=== PATIENT | female | born 1940 | race Caucasian/White ===

== ENCOUNTER → 2016-04-16 | Outpatient (CLI) | payer MEDICARE ==
[2015-09-17 14:14] VITALS: BP 114/62
[~2016-04-16] MED LIST: APIX5TAB PO; ATOR20TA58 PO; DILT120C97 PO; FLEC50TA PO; POLY119P4 PO
--- NOTE | 2016-04-16 11:08 | CARD ---
APPROVED REPORT EXAM: Two-dimensional and M-mode echocardiogram with Doppler and color Doppler. Other Information Quality : Good Rhythm : NSR INDICATION SSS RISK FACTORS Hypertension 2D DIMENSIONS RVDd1.8 (2.9-3.5cm)Left Atrium(2D)2.2 (1.6-4.0cm) IVSd0.7 (0.7-1.1cm)Aortic Root(2D)2.5 (2.0-3.7cm) LVDd4.3 (3.9-5.9cm)LVOT Diameter2.1 (1.8-2.4cm) PWd0.8 (0.7-1.1cm)LVDs3.0 (2.5-4.0cm) FS (%) 29.6 %SV46.8 ml LVEF(%)57.0 (>50%) Aortic Valve AoV Peak Alexei.130.8cm/sAoV VTI31.1cm AO Peak GR.6.8mmHgLVOT Peak Alexei.90.2cm/s AO Mean GR.4mmHgAVA (VMAX)2.43cm2 Mitral Valve MV E Lrmqqmfp55.7cm/sMV E Peak Gr.3mmHg MV DECEL [id number] A Aejnzlik85.0cm/s MV E Mean Gr.1mmHgE/A Ratio0.7 MV A [id number] Pulmonary Valve PV Peak Grmwklzp69.6cm/s Tricuspid Valve TR P. Cyvfuxcp009rt/sTR Peak Gr.17mmHg Pulmonary Vein S1 Aeqyuncv96.5cm/sD2 Zebmrsaa54.6cm/s PVa [id number] LEFT VENTRICLE The left ventricle is normal size. There is normal left ventricular wall thickness. The left ventricu lar systolic function is normal. The Ejection Fraction is 60-65%. There is normal LV segmental wall m otion. Transmitral Doppler flow pattern is Grade I-abnormal relaxation pattern. RIGHT VENTRICLE The right ventricle is normal size. There is normal right ventricular wall thickness. The right ventr icular systolic function is normal. There is a pacemaker lead in the right ventricle. ATRIA The left atrium is mildly dilated. The right atrium size is normal. The interatrial septum is intact with no evidence for an atrial septal defect or patent foramen ovale as noted on 2-D or Doppler imagi ng. AORTIC VALVE The aortic valve is mildly sclerotic. Doppler and Color Flow revealed mild aortic regurgitation. Ther e is no significant aortic valvular stenosis. MITRAL VALVE The mitral valve leaflets are thickened. There is no evidence of mitral valve prolapse. There is no m itral valve stenosis. Doppler and Color Flow revealed mild mitral regurgitation. TRICUSPID VALVE Doppler and Color Flow revealed mild tricuspid regurgitation. The pulmonary artery systolic pressure is estimated at 22 mmHg. There is no pulmonary hypertension. PULMONIC VALVE The pulmonic artery is not well visualized. Doppler and Color Flow revealed mild pulmonic valvular re gurgitation. There is no pulmonic valvular stenosis. GREAT VESSELS The aortic root is normal in size. The ascending aorta is normal in size. The pulmonary artery is nor mal. The IVC is normal in size and collapses <50% with inspiration. PERICARDIAL EFFUSION There is no evidence of significant pericardial effusion. Critical Notification Critical Value: No <Conclusion> The left ventricular systolic function is normal. The Ejection Fraction is 60-65%. There is normal LV segmental wall motion. Transmitral Doppler flow pattern is Grade I-abnormal relaxation pattern. The left atrium is mildly dilated. Mild aortic regurgitation. Mild mitral regurgitation. Mild tricuspid regurgitation. The pulmonary artery systolic pressure is estimated at 22 mmHg. There is no pulmonary hypertension. There is no evidence of significant pericardial effusion.
== END | disposition home or self-care (01) ==
LOC: ECHO 08:44
PROVIDERS: ATTEND Internal Medicine Cardiovascular Disease
DX: I34.0 Nonrheumatic mitral (valve) insufficiency (principal); I37.1 Nonrheumatic pulmonary valve insufficiency; I35.1 Nonrheumatic aortic (valve) insufficiency; Z95.0 Presence of cardiac pacemaker
CPT/HCPCS: 93306

== ENCOUNTER → 2016-05-21 | Outpatient (CLI) | payer MEDICARE ==
[2015-09-17 14:14] VITALS: BP 114/62
--- NOTE | 2016-05-21 12:44 | KCIC ---
CT abdomen and pelvis without contrast Indication: Hematuria. Axial imaging through the abdomen and pelvis was performed without contrast. PQRS STATEMENT One or more of the following individualized dose reduction techniques were utilized for this study: 1.Automated exposure control. 2.Adjustment of the mA and/orkVaccording to patient size. 3.Use of iterative reconstruction technique. No prior studies are available for comparison. The patient does have a pectus excavatum deformity of the chest. The lung bases are clear apart from some scarring or atelectasis in the left lower lobe. The liver contains tiny low densities which are too small to characterize but likely represent cysts. The gallbladder is surgically absent. The pancreas and spleen are unremarkable. No adrenal mass is detected. There are numerous bilateral nonobstructing renal calculi, largest lower pole left kidney measuring 8 millimeters. No definite ureteral calculi or ureteral dilatation is detected. Aorta is non aneurysmal. The small and large bowel loops are normal caliber. There is no ascites. There is sigmoid diverticulosis without evidence of acute diverticulitis. The bladder is decompressed. No bladder calculi are detected. Impression: Bilateral nonobstructing nephrolithiasis. No other significant abnormality is detected. Electronically signed by: Conrad Sheth MD (May 21, 2016 12:42:33)
== END | disposition home or self-care (01) ==
LOC: KCIC CT 10:12
PROVIDERS: ATTEND Nurse Practitioner Occupational Health
DX: R31.9 Hematuria, unspecified (principal); N20.0 Calculus of kidney
CPT/HCPCS: 74176

== ENCOUNTER → 2016-05-28 | Outpatient (CLI) | payer MEDICARE ==
[2015-09-17 14:14] VITALS: BP 114/62
--- NOTE | 2016-05-31 14:01 | KCIC ---
Bilateral digital screening mammograms with CAD: HISTORY COMPARISON Comparison is made to previous studies dated 01/25/2012 and 11/19/2009. FINDINGS Breast density category B. The skin and nipples show no abnormalities. No abnormal lymph nodes are seen in the axilla. The breast parenchyma shows scattered fibroglandular density. There appears to be some focally increased nodularity in the subareolar position of the right breast on oblique view. Recommend further evaluation with coned compression views and ultrasound. There are no other dominant masses, suspicious calcifications or architectural distortions. Benign appearing calcifications are present IMPRESSION Nodularity in the subareolar position of the right breast best seen on oblique view. Recommend further evaluation with additional coned compression views and ultrasound. This study was interpreted with the benefit of Computerized Aided Detection (CAD). Mammography is not 100% sensitive in detecting breast cancer. Therefore, a self breast exam and a clinical breast exam are very important. A negative mammogram does not negate a clinically suspicious finding and should not result in a delay in biopsying a clinically suspicious abnormality. BI-RADS category 0: Incomplete. Additional imaging is recommended. This patient's information has been entered into a reminder system for the patient to be notified with the results of this examination and a target date for her next mammograms. Electronically signed by: Daniela Robrets MD (May 31, 2016 13:59:31)
== END | disposition home or self-care (01) ==
LOC: KCIC MAMMO 09:42
PROVIDERS: ATTEND Family Medicine
DX: Z12.31 Encounter for screening mammogram for malignant neoplasm of breast (principal)
CPT/HCPCS: G0202; 77067

== ENCOUNTER → 2016-06-03 | Outpatient (CLI) | payer MEDICARE ==
[2015-09-17 14:14] VITALS: BP 114/62
--- NOTE | 2016-06-03 09:53 | RAD ---
DATE: 05/28/2016 EXAM: DIGITAL DIAGNOSTIC RT, BREAST RIGHT HISTORY: Nodular density seen in the retroareolar region of the right breast on screening mammogram. COMPARISON: 05/28/2016 This study was interpreted with the benefit of Computerized Aided Detection (CAD). FINDINGS: Spot compression MLO and 2 lateral digital mammograms of the right breast were obtained. Additionally a real-time ultrasound examination of the retroareolar region of the right breast was performed. Multiple images were obtained. Comparison is made to the patient's recent screening mammogram dated 05/28/2016. A spot compression MLO mammogram demonstrates a persistent 5 mm nodule within the retroareolar region of the right breast. Further evaluation with right breast ultrasound is recommended. Ultrasound of the retroareolar region of the right breast demonstrates a 4.7 mm well-defined hypoechoic nodule which corresponds to the patient's mammographic abnormality. Its ultrasound appearance is felt to be most consistent with a probably benign finding such as a small fibroadenoma. A follow-up ultrasound of the right breast in 6 months is recommended to document stability. IMPRESSION: 4.7 mm hypoechoic nodule is seen within the retroareolar region of the right breast which corresponds to the patient's mammographic abnormality. Its ultrasound appearance is consistent with a probably benign finding as outlined above. A repeat ultrasound of the right breast in 6 months is recommended to document its stability. BI-RADS CATEGORY: 3 PROBABLY BENIGN FINDING(S)-SHORT INTERVAL FOLLOW-UP SUGGESTED RECOMMENDED FOLLOW-UP: 6M 6 MONTH FOLLOW-UP Mammography is a sensitive method for finding small breast cancers, but it does not detect them all and is not a substitute for careful clinical examination. A negative mammogram does not negate a clinically suspicious finding and should not result in delay in biopsying a clinically suspicious abnormality. "Our facility is accredited by the [employer] Mammography Program."
== END | disposition home or self-care (01) ==
LOC: KCIC MAMMO 08:55
PROVIDERS: ATTEND Family Medicine
DX: R92.8 Other abnormal and inconclusive findings on diagnostic imaging of breast (principal)
CPT/HCPCS: 76641; G0206; 77065

== ENCOUNTER → 2016-09-28 | Outpatient (CLI) | payer MEDICARE ==
[2015-09-17 14:14] VITALS: BP 114/62
[~2016-09-28] MED LIST changes: +DILT120C80 PO; -DILT120C97 PO
--- NOTE | 2016-09-28 14:43 | KCIC ---
CHEST PA LATERAL History: Fever of unspecified cause. Weakness.. Comparison: None. Findings: Pectus excavatum deformity is noted. This likely accounts for loss of definition of the right heart border, increased density at the inferomedial right lung and some deviation of the heart towards the left. No definite airspace consolidation is otherwise identified. No pneumothorax or pleural effusion is seen. Mild S-shaped thoracic scoliosis is identified. Dual-lead pacemaker is noted. IMPRESSION: 1. Inferomedial right lung density with loss of definition of the right heart border, likely due to pectus excavatum deformity. 2. No definite acute findings. Electronically signed by: Teofilo Chávez MD (09/28/2016 2:40 PM) [facility]
== END | disposition home or self-care (01) ==
LOC: KCIC 13:51
PROVIDERS: ATTEND Family Medicine
DX: R50.9 Fever, unspecified (principal); R53.1 Weakness
CPT/HCPCS: 71020

== ENCOUNTER → 2017-02-01 | Outpatient (CLI) | payer MEDICARE ==
[2015-09-17 14:14] VITALS: BP 114/62
--- NOTE | 2017-02-01 10:31 | RAD ---
Indication: 6 month follow-up probably benign finding. Technique: Limited right breast ultrasound was performed and compared to a study from June 03, 2016. Findings: Hypoechoic mass in the retroareolar 12:00 right breast is similar in size to prior. It measures up to 0.3 cm. It has no internal color flow. It may represent a small complex cyst or fibroadenoma. Impression: Stable probably benign findings. BI-RADS Category 3. Patient is due for bilateral mammogram on May 29, 2017.
== END | disposition home or self-care (01) ==
LOC: KCIC US 09:50
PROVIDERS: ATTEND Family Medicine
DX: R92.8 Other abnormal and inconclusive findings on diagnostic imaging of breast (principal)
CPT/HCPCS: 76641

== ENCOUNTER → 2018-07-13 | Outpatient (CLI) | payer MEDICARE ==
[2015-09-17 14:14] VITALS: BP 114/62
[~2018-07-13] MED LIST changes: -DILT120C80 PO; +DILT120C85 PO
--- NOTE | 2018-07-13 10:02 | KCIC ---
EXAM: Supine AP view of the abdomen DATE: 07/13/2018 12:00 AM INDICATION: 9 mm left renal stone and 3 mm right renal stone, follow-up. COMPARISON: No Prior FINDINGS: No abnormal small or large bowel dilatation. Large volume colonic stool content. No abnormal soft tissue mass effect. Evaluation for subtle calcification limited given marked overlying stool and associated superimposition artifact. At the expected inferior pole the left kidney there is an 8 mm calcification likely renal calculus. In addition there are 3 mm calcifications projecting over the expected left upper interpolar portions of the kidneys, likely calculi as well. Evaluation for free intraperitoneal gas is limited on this supine exam. Right upper quadrant clips are seen. IMPRESSION: 1. Evaluation for renal calculi is significantly limited given the marked overlying stool content. 2. Calcifications projecting over the left kidney including a 9 mm calcification projecting over the lower pole may represent renal calculi and can be further delineated by CT. 3. No evidence for bowel obstruction. Electronically signed by: Dino Orourke MD (07/13/2018 9:59 AM) [facility]
== END | disposition home or self-care (01) ==
LOC: KCIC 09:36
PROVIDERS: ATTEND Urology
DX: N20.0 Calculus of kidney (principal)
CPT/HCPCS: 74018

== ENCOUNTER 2019-01-07 13:24 | Emergency (ER) | payer MEDICARE ==
[~2019-01-07] VITALS: Ht 172.7 cm; Wt 56.2 kg
[~2019-01-07 13:24] MED LIST changes: -DILT120C85 PO; +DILT120C99 PO
[2019-01-07 14:33] LABS: BILIRUBIN,URINE NEGATIVE (NEG); CLARITY,URINE CLEAR; COLOR,URINE YELLOW; NITRITE,URINE NEGATIVE (NEG); PROTEIN,URINE NEGATIVE (NEG-TRACE); UROBILINOGEN,URINE 0.2 mg/dL (0.2 mg/dL)
[2019-01-07 14:33] LABS: BASO # 0.1 x10^3/uL (0.0-0.2); BASO % 1 % (0-3); EOS # 0.1 x10^3/uL (0.0-0.7); EOS % 1 % (0-3); HEMATOCRIT 37.4 % (36.0-47.0); HEMOGLOBIN 12.3 g/dL (12.0-15.5); LYMPH # 1.4 x10^3/uL (1.0-4.8); LYMPH % 22 % (24-48); MEAN CORPUSCULAR HEMOGLOBIN 31 pg (25-35); MEAN CORPUSCULAR HGB CONC 33 g/dL (31-37); MEAN CORPUSCULAR VOLUME 95 fL (79-100); MONO # 0.4 x10^3/uL (0.0-1.1); MONO % 6 % (0-9); NEUT # 4.5 x10^3/uL (1.8-7.7); NEUT % 70 % (31-73); PLATELET COUNT 227 x10^3/uL (140-400); RED BLOOD COUNT 3.95 x10^6/uL (3.50-5.40); RED CELL DISTRIBUTION WIDTH 14.4 % (11.5-14.5); WHITE BLOOD COUNT 6.4 x10^3/uL (4.0-11.0)
--- NOTE | 2019-01-07 14:34 | PHYS DOC ---
Past Medical History Past Medical History: A-Fib, High Cholesterol, Other Additional Past Medical Histor: BRONCHIOSTASIS Past Surgical History: Appendectomy, Cholecystectomy, Hysterectomy, Pacemaker Additional Past Surgical Histo: D&C Alcohol Use: None Drug Use: None Adult General Chief Complaint Chief Complaint: ABDOMINAL PAIN HPI HPI Patient is a 78 year old patient with history of atrial fibrillation on Eliquis and dyslipidemia who presents with complaint of hurting all over. Patient states she had sinus symptoms 1 week ago and seen at urgent care and treated for sinus infection with improvement of her condition. Patient complaining of hurting all over, nasal congestion, headache, nausea decrease of appetite. Patient also complaining of confusion without fall or head injury. Patient denies chest pain, new shortness of breath, focal neuro deficit, diarrhea and constipation. Patient states she thinks she has kidney infection. Patient denies pain in the emergency room. Patient is a poor historian. Review of Systems Review of Systems Constitutional: Denies fever or chills, reports generalized weakness [] Eyes: Denies change in visual acuity, redness, or eye pain [] HENT: Reports nasal congestion and sinus pain Respiratory: Reports chronic shortness of breath [] Cardiovascular: No additional information not addressed in HPI [] GI: Denies abdominal pain, nausea, vomiting, bloody stools or diarrhea [] : Denies dysuria or hematuria , reports Musculoskeletal: Denies back pain or joint pain [] Integument: Denies rash or skin lesions [] Neurologic: Denies headache, focal weakness or sensory changes [] Endocrine: Denies polyuria or polydipsia [] All other systems were reviewed and found to be within normal limits, except as documented in this note. Current Medications Current Medications Current Medications Medications (Trade) Dose Ordered Sig/Zaira Start Time Stop Time Status Last Admin Dose Admin Lorazepam (Ativan Inj) 0.5 mg 1X ONCE 01/07/19 16:15 01/07/19 16:16 DC 01/07/19 16:46 0.5 MG Sodium Chloride 500 ml @ 500 mls/hr 1X ONCE 01/07/19 16:00 01/07/19 16:59 01/07/19 16:44 500 MLS/HR Allergies Allergies Allergies Coded Allergies Type Severity Reaction Last Updated Verified Sulfa (Sulfonamide Antibiotics) Allergy Intermediate 09/12/15 Yes iodine Allergy Intermediate 09/12/15 Yes Physical Exam Physical Exam Constitutional: Well developed, well nourished, mild distress, non-toxic appearance. [] HENT: Normocephalic, atraumatic, bilateral external ears normal, oropharynx moist, no oral exudates, nose normal. [] Eyes: PERRLA, EOMI, conjunctiva normal, no discharge. [] Neck: Normal range of motion, no tenderness, supple, no stridor. [] Cardiovascular:Heart rate regular rhythm, no murmur [] Lungs & Thorax: Bilateral breath sounds clear to auscultation [] Abdomen: Bowel sounds normal, soft, no tenderness, no masses, no pulsatile masses. [] Skin: Warm, dry, no erythema, no rash. [] Back: No tenderness, no CVA tenderness. [] Extremities: No tenderness, no cyanosis, no clubbing, ROM intact, no edema. [] Neurologic: Alert and oriented X 3, normal motor function, normal sensory function, no focal deficits noted. [] Psychologic: Affect normal, judgement normal, mood normal. [] Current Patient Data Vital Signs Vital Signs Date Time Temp Pulse Resp B/P (MAP) Pulse Ox O2 Delivery O2 Flow Rate FiO2 01/07/19 16:17 76 21 150/78 (102) 96 Room Air 01/07/19 13:37 98.2 98.2 Lab Values Laboratory Tests Test 01/07/19 13:55 01/07/19 14:30 Urine Collection Type Unknown Urine Color Yellow Urine Clarity Clear Urine pH 7.0 Urine Specific [place] 1.010 Urine Protein Negative mg/dL (NEG-TRACE) Urine Glucose (UA) Negative mg/dL (NEG) Urine Ketones (Stick) Negative mg/dL (NEG) Urine Blood Negative (NEG) Urine Nitrite Negative (NEG) Urine Bilirubin Negative (NEG) Urine Urobilinogen Dipstick 0.2 mg/dL (0.2 mg/dL) Urine Leukocyte Esterase Negative (NEG) Urine RBC 0 /HPF (0-2) Urine WBC 0 /HPF (0-4) Urine Squamous Epithelial Cells Mod /LPF Urine Bacteria Few /HPF (0-FEW) White Blood Count 6.4 x10^3/uL (4.0-11.0) Red Blood Count 3.95 x10^6/uL (3.50-5.40) Hemoglobin 12.3 g/dL (12.0-15.5) Hematocrit 37.4 % (36.0-47.0) Mean Corpuscular Volume 95 fL (79-100) Mean Corpuscular Hemoglobin 31 pg (25-35) Mean Corpuscular Hemoglobin Concent 33 g/dL (31-37) Red Cell Distribution Width 14.4 % (11.5-14.5) Platelet Count 227 x10^3/uL (140-400) Neutrophils (%) (Auto) 70 % (31-73) Lymphocytes (%) (Auto) 22 % (24-48) L Monocytes (%) (Auto) 6 % (0-9) Eosinophils (%) (Auto) 1 % (0-3) Basophils (%) (Auto) 1 % (0-3) Neutrophils # (Auto) 4.5 x10^3/uL (1.8-7.7) Lymphocytes # (Auto) 1.4 x10^3/uL (1.0-4.8) Monocytes # (Auto) 0.4 x10^3/uL (0.0-1.1) Eosinophils # (Auto) 0.1 x10^3/uL (0.0-0.7) Basophils # (Auto) 0.1 x10^3/uL (0.0-0.2) Prothrombin Time 14.3 SEC (11.7-14.0) H Prothrombin Time INR 1.1 (0.8-1.1) Activated Partial Thromboplast Time 31 SEC (24-38) Sodium Level 141 mmol/L (136-145) Potassium Level 4.3 mmol/L (3.5-5.1) Chloride Level 104 mmol/L (98-107) Carbon Dioxide Level 29 mmol/L (21-32) Anion Gap 8 (6-14) Blood Urea Nitrogen 11 mg/dL (7-20) Creatinine 0.9 mg/dL (0.6-1.0) Estimated GFR (Cockcroft-Gault) 60.7 BUN/Creatinine Ratio 12 (6-20) Glucose Level 84 mg/dL (70-99) Lactic Acid Level 0.6 mmol/L (0.4-2.0) Calcium Level 9.2 mg/dL (8.5-10.1) Magnesium Level 2.0 mg/dL (1.8-2.4) Total Bilirubin 0.5 mg/dL (0.2-1.0) Aspartate Amino Transferase (AST) 22 U/L (15-37) Alanine Aminotransferase (ALT) 18 U/L (14-59) Alkaline Phosphatase 53 U/L (46-116) Creatine Kinase 66 U/L (26-192) Troponin I Quantitative < 0.017 ng/mL (0.000-0.055) SW-Qab-I-Type Natriuretic Peptide 159 pg/mL (0-449) Total Protein 7.0 g/dL (6.4-8.2) Albumin 3.3 g/dL (3.4-5.0) L Albumin/Globulin Ratio 0.9 (1.0-1.7) L Laboratory Tests 01/07/19 14:30 Laboratory Tests 01/07/19 14:30 EKG EKG EKG interpreted by me. EKG at 15 overnight showed paced rhythm at rate of 76, left fourth axis, incomplete right bundle-branch block, T-wave abnormality in inferior leads, no acute ST and T-wave elevation. Radiology/Procedures Radiology/Procedures [][facility] [address] [place] [address] IMAGING REPORT Signed PATIENT: CHUNG ESCOTO ACCOUNT: [id number] : 1940 LOCATION: ER AGE: 78 SEX: F EXAM STATUS: REG ER ORD. PHYSICIAN: SAVANAH DAVIDSON MD REASON: generalized weakness PROCEDURE: PORTABLE CHEST 1V Exam performed: CT scan of the head without contrast. Date of Service: 01/07/2019. Comparison: None available. Clinical History: Weakness. Technique: Helical acquisitions are obtained from the foramen magnum to the vertex without intravenous administration of contrast. Findings: The ventricles are midline without evidence of dilatation. Normal madrigal-white differentiation is maintained. There is no extra axial fluid collection, intraparenchymal hemorrhage or mass lesion. Mild diffuse atrophy is seen. There are areas of low-attenuation in both periventricular and subcortical deep white matter suggesting small vessel ischemic changes. The visualized portions of the orbits, paranasal sinuses and the mastoid air cells appear clear. The calvarium is intact. Impression: 1. No acute intracranial process detected. 2. Age-related atrophy is seen. PQRS Compliance Statement: One or more of the following individualized dose reduction techniques were utilized for this examination: 1. Automated exposure control 2. Adjustment of the mA and/or kV according to patient size 3. Use of iterative reconstruction technique End impression Exam performed: One view chest. Indication: Shortness of breath Date of Service: 01/07/2019 2:17 PM Comparison: 2 views chest from 09/28/2016. Single AP upright portable view chest findings: Cardiomediastinal silhouette is within limits of normal. Bipolar pacemaker. Prominent interstitial markings are seen in both lungs perhaps chronic. No acute infiltrates, effusion or pneumothorax is detected. The bony structures are normal. Impression: No acute cardiopulmonary process is detected. Electronically signed by: Valery Medina MD (01/07/2019 3:04 PM) [facility] DICTATED and SIGNED BY: VALERY MEDINA MD DATE: 01/07/19 1504 [facility] [address] [place] [address] IMAGING REPORT Signed PATIENT: CHUNG ESCOTO ACCOUNT: [id number] : 1940 LOCATION: ER AGE: 78 SEX: F EXAM STATUS: REG ER ORD. PHYSICIAN: SAVANAH DAVIDSON MD REASON: weakness PROCEDURE: CT HEAD WO CONTRAST Exam performed: CT scan of the head without contrast. Date of Service: 01/07/2019. Comparison: None available. Clinical History: Weakness. Technique: Helical acquisitions are obtained from the foramen magnum to the vertex without intravenous administration of contrast. Findings: The ventricles are midline without evidence of dilatation. Normal madrigal-white differentiation is maintained. There is no extra axial fluid collection, intraparenchymal hemorrhage or mass lesion. Mild diffuse atrophy is seen. There are areas of low-attenuation in both periventricular and subcortical deep white matter suggesting small vessel ischemic changes. The visualized portions of the orbits, paranasal sinuses and the mastoid air cells appear clear. The calvarium is intact. Impression: 1. No acute intracranial process detected. 2. Age-related atrophy is seen. PQRS Compliance Statement: One or more of the following individualized dose reduction techniques were utilized for this examination: 1. Automated exposure control 2. Adjustment of the mA and/or kV according to patient size 3. Use of iterative reconstruction technique End impression Exam performed: One view chest. Indication: Shortness of breath Date of Service: 01/07/2019 2:17 PM Comparison: 2 views chest from 09/28/2016. Single AP upright portable view chest findings: Cardiomediastinal silhouette is within limits of normal. Bipolar pacemaker. Prominent interstitial markings are seen in both lungs perhaps chronic. No acute infiltrates, effusion or pneumothorax is detected. The bony structures are normal. Impression: No acute cardiopulmonary process is detected. Electronically signed by: Valery Medina MD (01/07/2019 3:04 PM) [facility] DICTATED and SIGNED BY: VALERY MEDINA MD DATE: 01/07/19 1506 Course & Med Decision Making Course & Med Decision Making Pertinent Labs and Imaging studies reviewed. (See chart for details) Evaluation of patient in ER showed 78-year-old male patient with multiple complaint. Patient states that she is taking care of her disabled and is stressed out with financial and physical work and needs to have rest for several days. Patient denies suicidal and homicidal ideation and hallucination. Patient refused hospitalization and was advised to follow up with her primary care physician. Patient treated with IV fluid and Ativan in ER and felt better. I've spoken with the patient and/or caregivers. I've explained the patient's condition, diagnosis and treatment plan based on information available to me at this time. I've answered the patient's and/or caregivers questions and addressed any concerns. The patient and/or caregivers have a good understanding the patient's diagnosis, condition and treatment plan as can be expected at this point. Vital signs have been stabilized. The patient's condition is stable for discharge from the emergency department. The patient will pursue further outpatient evaluation with her primary care provider or other designated consulting physician as outlined in the discharge instructions. Patient and/or caregivers are agreeable to this plan of care and follow-up instructions have been explained in detail. The patient and/or caregivers have received these instructions in written format and expressed understanding of these discharge instructions. The patient and her caregivers are aware that if any significant change in condition or worsening of symptoms should prompt him to immediately return to this of the closest emergency department. If an emergent department is not readily available I would encourag e him to call 911. Blas Disclaimer Blas Disclaimer This electronic medical record was generated, in whole or in part, using a voice recognition dictation system. Departure Departure Impression: Primary Impression: Anxiety about health Additional Impressions: Feeling stressed out Paced cardiac rhythm Disposition: HOME, SELF-CARE (at 1620) Condition: STABLE Referrals: Flo SANTIAGO MD (PCP) Patient Instructions: Stress, Stress Management Additional Instructions: Drink plenty of liquids Follow-up with your primary care physician in 2 days Return to ER if not getting better Continue current medication Problem Qualifiers SAVANAH DAVIDSON MD Jan 07, 2019 14:34
[2019-01-07 14:40] LABS: BACTERIA,URINE FEW /HPF (0-FEW); RBC,URINE 0 /HPF (0-2); WBC,URINE 0 /HPF (0-4)
[2019-01-07 14:41] LABS: SQUAMOUS EPITHELIAL CELL,UR MOD /LPF
[2019-01-07 14:43] LABS: CALCIUM 9.2 mg/dL (8.5-10.1); CREATININE 0.9 mg/dL (0.6-1.0); GFR 60.7; POTASSIUM 4.3 mmol/L (3.5-5.1)
[2019-01-07 14:44] LABS: PROTHROMBIN TIME PATIENT 14.3 SEC (11.7-14.0)
[2019-01-07 14:57] LABS: ALBUMIN 3.3 g/dL (3.4-5.0); ALBUMIN/GLOBULIN RATIO 0.9 (1.0-1.7); TOTAL BILIRUBIN 0.5 mg/dL (0.2-1.0)
--- NOTE | 2019-01-07 15:07 | RAD ---
Exam performed: CT scan of the head without contrast. Date of Service: 01/07/2019. Comparison: None available. Clinical History: Weakness. Technique: Helical acquisitions are obtained from the foramen magnum to the vertex without intravenous administration of contrast. Findings: The ventricles are midline without evidence of dilatation. Normal madrigal-white differentiation is maintained. There is no extra axial fluid collection, intraparenchymal hemorrhage or mass lesion. Mild diffuse atrophy is seen. There are areas of low-attenuation in both periventricular and subcortical deep white matter suggesting small vessel ischemic changes. The visualized portions of the orbits, paranasal sinuses and the mastoid air cells appear clear. The calvarium is intact. Impression: 1. No acute intracranial process detected. 2. Age-related atrophy is seen. PQRS Compliance Statement: One or more of the following individualized dose reduction techniques were utilized for this examination: 1. Automated exposure control 2. Adjustment of the mA and/or kV according to patient size 3. Use of iterative reconstruction technique End impression Exam performed: One view chest. Indication: Shortness of breath Date of Service: 01/07/2019 2:17 PM Comparison: 2 views chest from 09/28/2016. Single AP upright portable view chest findings: Cardiomediastinal silhouette is within limits of normal. Bipolar pacemaker. Prominent interstitial markings are seen in both lungs perhaps chronic. No acute infiltrates, effusion or pneumothorax is detected. The bony structures are normal. Impression: No acute cardiopulmonary process is detected. Electronically signed by: Valery Medina MD (01/07/2019 3:04 PM) [facility]
[2019-01-07] MEDS ORDERED: IV NORMAL SALINE 500ML BAG 500 ML IV ONE (16:00)
[2019-01-07 17:30] VITALS: BP 133/71
--- NOTE | 2019-01-08 06:49 | EKG ---
[facility] [address] [place] [address] Test Date: 2019-01-07 Test Time: 15:09:09 Pat Name: CHUNG ESCOTO Department: Room: Gender: F [employer] Diamond: : 1940 Requested By: SAVANAH DAVIDSON Order Number: [id number] Reading MD: Measurements Intervals [place] Rate: 76 P: SD: QRS: -10 QRSD: 102 T: 0 QT: 390 QTc: 438 Interpretive Statements ACCELERATED JUNCTIONAL RHYTHM LEFTWARD AXIS INCOMPLETE RIGHT BUNDLE BRANCH BLOCK T ABNORMALITY IN INFERIOR LEADS ABNORMAL ECG RI6.01 No previous ECG available for comparison
== END 2019-01-07 17:40 | disposition home or self-care (01) ==
LOC: ER 13:24
DX: F41.9 Anxiety disorder, unspecified (principal); F43.9 Reaction to severe stress, unspecified; I48.91 Unspecified atrial fibrillation; R41.0 Disorientation, unspecified; E78.00 Pure hypercholesterolemia, unspecified; E78.5 Hyperlipidemia, unspecified; Z79.01 Long term (current) use of anticoagulants; Z95.0 Presence of cardiac pacemaker; Z88.8 Allergy status to other drugs, medicaments and biological substances; Z88.2 Allergy status to sulfonamides
CPT/HCPCS: 36415; 70450; 71045; 80053; 81001; 82550; 83605; 83735; 83880; 84484; 85025; 85610; 85730; 93005; 96374; 99285; J2060; J7040

== ENCOUNTER → 2019-12-05 | Outpatient (CLI) | payer MEDICARE ==
--- NOTE | 2019-12-05 13:21 | RAD ---
EXAM: PA and Lateral Views of the Chest DATE: 12/05/2019 12:00 AM INDICATION: Reason: COPD / Spl. Instructions: / History: COMPARISON: 01/07/2019 FINDINGS: Cardiac generator pack obscures a portion of the left chest with leads in stable position. Heart is mildly enlarged. Aorta is tortuous with atherosclerotic calcifications. Bilateral parenchymal airspace opacities are seen including perihilar opacities bilaterally and bilateral lung base opacities, may represent developing multifocal consolidative process. No pleural effusion or pneumothorax. Changes of pectus deformity of the anterior chest wall. IMPRESSION: 1. Bilateral parenchymal opacities, may represent developing multifocal consolidative process. Atypical infectious/inflammatory process or atelectasis may also have this appearance. Electronically signed by: Dino Orourke MD (12/05/2019 1:18 PM) [id number]
== END ==
LOC: RAD 10:07
PROVIDERS: ATTEND Internal Medicine Pulmonary Disease
DX: J44.9 Chronic obstructive pulmonary disease, unspecified (principal); I51.7 Cardiomegaly; Q25.46 Tortuous aortic arch
CPT/HCPCS: 71046